=== PATIENT | female | born 1985 | race Caucasian/White ===

== ENCOUNTER → 2016-06-09 | Outpatient (CLI) | payer SELFPAY ==
--- NOTE | 2016-06-10 08:06 | XR ---
EXAMINATION TYPE: XR cervical spine comp DATE OF EXAM: 06/09/2016 5:12 PM COMPARISON: None HISTORY: Neck pain TECHNIQUE: 5 view cervical spine FINDINGS: Prevertebral space is normal. Slight kyphosis present. Posterior spinal lamellar line is in tact. Disc height and vertebral body heights are preserved. Foramen are patent. Extremely subtle ante rolisthesis of C2 on C3 and C3 on C4 C4 and C5 may be present. IMPRESSION: 1. No acute osseous abnormality. 2. Subtle anterolisthesis of the upper cervical spine
== END | disposition home or self-care (01) ==
LOC: RADXRMAIN 16:55
PROVIDERS: ATTEND Family Medicine
DX: M43.12 Spondylolisthesis, cervical region (principal)
CPT/HCPCS: 72050

== ENCOUNTER → 2018-12-13 | Outpatient (CLI) | payer OTHER ==
--- NOTE | 2018-12-14 15:41 | MR ---
EXAMINATION TYPE: MR cervical spine wo con DATE OF EXAM: 12/13/2018 COMPARISON: None HISTORY: Neck pain TECHNIQUE: Multiplanar, multisequence images of the cervical spine were acquired. Cervical vertebra have normal spacing and alignment. Posterior elements are intact. Brainstem is inta ct. Cervical spinal cord is intact. Cerebellum appears normal. There is no spinal stenosis. There is no evidence of cervical paraspinal mass. Cervical spinal cord has normal signal pattern. There is no edema. IMPRESSION: Normal MR scan of the cervical spine.
== END | disposition home or self-care (01) ==
LOC: RADMRIMAIN 14:25
PROVIDERS: ATTEND Internal Medicine
DX: M54.2 Cervicalgia (principal)
CPT/HCPCS: 72141

== ENCOUNTER → 2019-04-18 | Outpatient (CLI) | payer OTHER ==
--- NOTE | 2019-04-18 12:36 | EST ---
EXERCISE STRESS DATE OF SERVICE: 04/18/2019 AGE: 33 SEX: Female HT: 61" WT: 205 pounds PROTOCOL: Agustin STAGE: III DURATION OF EXERCISE: 9 minutes HEART RATE REST: 83 BLOOD PRESSURE REST: 127/85 MAXIMUM HEART RATE ACHIEVED: 155 MAXIMUM BLOOD PRESSURE: 168/80 85% MPHR: 161 100% MPHR: 189 METS: 10.5 INDICATIONS: Chest pain. CLINICAL INFORMATION: Patient was exercised for a total period of 9 minutes. Peak heart rate of 155 was achieved. Maximum blood pressure of 158/80 mmHg was noted. The resting EKG shows normal sinus rhythm with normal KS interval and QRS duration and normal ST-T waves. No ST-segment depression suggestive of ischemia is noted. No dysrhythmias are noted. FINAL IMPRESSION: 1. This exercise EKG electrocardiogram is not suggestive of ischemia. 2. Patient's exercise tolerance is normal. 3. Patient did not complain of any anginal pain during the test. 4. No dysrhythmias are noted. MMODL / IJN: [id number] /
== END | disposition home or self-care (01) ==
LOC: RADNMMAIN 10:22
PROVIDERS: ATTEND Internal Medicine
DX: R07.9 Chest pain, unspecified (principal)
CPT/HCPCS: 93017

== ENCOUNTER 2023-05-10 07:31 | Emergency (ER) | payer OTHER ==
[2023-05-10] MEDS ORDERED: ACETAMINOPHEN TAB 500 MG TAB PO STA (07:54)
--- NOTE | 2023-05-10 08:00 | ED ---
General Adult HPI - General Chief complaint: Upper Respiratory Infection Stated complaint: SOB,Cough, Congestion Time Seen by Provider: 05/10/23 07:39 Source: patient, RN notes reviewed Mode of arrival: ambulatory Limitations: no limitations - History of Present Illness Initial comments: Patient 38-year-old female presented to the emergency room today with a chief complaint of cough, congestion, body aches, fever, chills over the last 5 days. Patient does admit that she was seen at another ER 4 days ago and diagnosed with influenza A. She states has been taking Tamiflu also xovs-eaz-yrelasc medications. States she has had increased cough, congestion. Does admit to history of asthma. States been using nebulized treatments as well with some r elief. Admits to some diarrhea. States occasional nausea. Denies any other complaints or any other symptoms. Denies chest pain, back pain, abdominal pain, shortness of breath. - Related Data Home Medications Medication Instructions Recorded Confirmed Albuterol Inhaler [Ventolin Hfa 1 - 2 puff INHALATION Q6HR PRN 02/10/16 02/10/16 Inhaler] Previous Rx's Medication Instructions Recorded predniSONE 50 mg PO DAILY #7 tab 02/10/16 predniSONE [Deltasone] 20 mg PO BID 5 Days #10 tab 05/10/23 Allergies Allergy/AdvReac Type Severity Reaction Status Date / Time amoxicillin Allergy Rash/Hives Verified 08/03/20 22:55 cephalexin [From Keflex] Allergy Rash/Hives Verified 08/03/20 22:55 latex Allergy Rash/Hives Verified 08/03/20 22:55 Review of Systems ROS Statement: Those systems with pertinent positive or pertinent negative responses have been documented in the HPI. ROS Other: All systems not noted in ROS Statement are negative. Past Medical History Past Medical History: Asthma, Hypertension History of Any Multi-Drug Resistant Organisms: None Reported Past Surgical History: Cholecystectomy Past Anesthesia/Blood Transfusion Reactions: No Reported Reaction Past Psychological History: No Psychological Hx Reported Smoking Status: Never smoker Past Alcohol Use History: None Reported Past Drug Use History: None Reported General Exam - General Exam Comments Initial Comments: General: The patient is awake and alert, in no distress, and does not appear acutely ill. Eye: Extra-ocular movements are intact. There is normal conjunctiva bilaterally. No signs of icterus. Ears, nose, mouth and throat: There are moist mucous membranes and no oral lesions. Neck: The neck is supple, there is no tenderness or JVD. Cardiovascular: There is a regular rate and rhythm. No murmur, rub or gallop is appreciated. Respiratory: Bilateral expiratory wheeze. Respirations are non-labored, breath sounds are equal. Musculoskeletal: Normal ROM, no tenderness. Neurological: A&O x 3. CN II-XII intact, There are no obvious motor or sensory deficits. Coordination appears grossly intact. Speech is normal. Skin: Skin is warm and dry and no rashes or lesions are noted. Psychiatric: Cooperative, appropriate mood & affect, normal judgment. Limitations: no limitations Course Vital Signs 05/10/23 05/10/23 07:39 07:46 Temperature 98.2 F Pulse Rate 65 Respiratory 16 18 Rate Blood Pressure 141/89 O2 Sat by Pulse 98 Oximetry Medical Decision Making - Medical Decision Making History was obtained from patient/Nurse/Family/ Initial assessment and chief complaint: Cough, congestion, fever, body aches Chronic conditions affecting care: Asthma Social determinants affecting care: None Differential diagnosis included, but not limited to: Influenza A, pneumonia Any imaging that may have been performed was also reviewed. I did an independent interpretation of the patient's imaging. My interpretation of chest x-ray was reviewed and was negative for any evidence of pneumonia. No other acute abnormality. 38-year-old female presented to the emergency room today with a chief complaint of bodyaches, fever, cough, congestion. Does admit to history of asthma. Has been doing nebulizer treatments at home with some relief. Patient did test positive for influenza A just 4 days ago. Patient did have some mild expiratory wheeze bilaterally. Patient chest x-ray shows no evidence of pneumonia. Was discussed with patient about course of steroids. Patient does have nebulizer treatments at home that she can use. Her vitals have been stable here in the emergency room. Will be discharged home. Given work note. Given prescription for steroids. Advise close follow-up and returning if any symptoms increase or worsen or for any other concerns. States understanding and is agreement with this plan. Disposition Clinical Impression: Influenza A Disposition: HOME SELF-CARE Condition: Good Instructions (If sedation given, give patient instructions): Influenza (ED) Additional Instructions: Please use medication as discussed. Please follow-up with family doctor in the next 2 days. Please return to emergency room if the symptoms increase or worsen or for any other concerns. Prescriptions: predniSONE [Deltasone] 20 mg PO BID 5 Days #10 tab Is patient prescribed a controlled substance at d/c from ED?: No Referrals: Rafal Gates MD [Primary Care Provider] - 1-2 days Time of Disposition: 08:56
[2023-05-10 08:19] VITALS: RESP 18
--- NOTE | 2023-05-10 08:26 | XR ---
EXAMINATION TYPE: XR chest 2V DATE OF EXAM: 05/10/2023 8:17 AM CLINICAL INDICATION:Female, 38 years old with history of cough; COMPARISON: Chest radiographs from 02/10/2016 TECHNIQUE: XR chest 2V Frontal and lateral views of the chest. FINDINGS: Lungs/Pleura: There is no evidence of pleural effusion, focal consolidation, or pneumothorax. Pulmonary vascularity: Unremarkable. Heart/mediastinum: Cardiomediastinal silhouette is unremarkable. Musculoskeletal: No acute osseous pathology. Other findings: None IMPRESSION: No acute cardiopulmonary disease/process.
[2023-05-10 09:32] VITALS: BP 136/72; PULSE 70; TEMP 98.1
== END 2023-05-10 09:09 | disposition home or self-care (01) ==
LOC: EC 07:31
DX: J10.1 Influenza due to other identified influenza virus with other respiratory manifestations (principal); J45.909 Unspecified asthma, uncomplicated; I10 Essential (primary) hypertension; Z79.899 Other long term (current) drug therapy; Z88.0 Allergy status to penicillin; Z88.1 Allergy status to other antibiotic agents; Z91.040 Latex allergy status
CPT/HCPCS: 71046; 99285

== ENCOUNTER 2023-11-20 11:20 | Emergency (ER) | payer OTHER ==
[2023-11-20] MEDS ORDERED: KETOROLAC 15 MG/ML 1 ML VIAL ONE (11:56)
[2023-11-20] MEDS ORDERED: ONDANSETRON 4 MG/2 ML VIAL ONE (11:56)
[2023-11-20] MEDS ORDERED: SODIUM CHLORIDE 0.9% 1,000 ML BAG ONE (11:59)
--- NOTE | 2023-12-17 16:36 | CT ---
Patient Meri Bradley ID [id number] Order # EXAMINATION TYPE: CT abdomen pelvis w con DATE OF EXAM: 11/20/2023 COMPARISON: No comparisons available on downtime PACS. INDICATION: Right lower quadrant pain and diarrhea DLP: 1119.8 mGycm, Automated exposure control for dose reduction was used. CONTRAST: 90 mL mL of Isovue 300. Study performed TECHNIQUE: Axial images were obtained from above the diaphragm to the pubic rami in the axial plane a t 5 mm thick sections. Reconstructed images are reviewed on the computer in the coronal plane. FINDINGS: Limited CT sections are obtained the lung bases. The lung bases are clear. CT ABDOMEN: Liver: Normal Spleen: Normal Pancreas: Normal Adrenal glands: The adrenal glands are normal. Gallbladder: Surgically absent Kidneys: No masses are evident. No hydronephrosis is present. No cysts are present. Delayed images were obtained through the kidneys, which remain unremarkable. Aorta: Vascular calcification is within the aorta. Inferior vena cava: Normal. CT PELVIS: There are multiple fluid-filled nondilated small bowel loops. Correlate for ileus. Colon is nondilate d. Scattered diverticuli are present without acute diverticulitis. This study is without oral contras t limiting bowel evaluation. Appendix: Normal as visualized. Urinary bladder: Normal. Genitourinary structures: Uterus is normal. Adnexa are normal Osseous structures: No suspicious lytic or sclerotic lesions. IMPRESSION: 1. Fluid-filled nondilated small bowel loops. Correlate for ileus. Gastroenteritis could be consider ed within the differential. 2. Mild diverticulosis without acute diverticulitis.
== END 2023-11-20 15:55 | disposition home or self-care (01) ==
LOC: EC 11:20
DX: K56.7 Ileus, unspecified (principal)
CPT/HCPCS: 74177; 96374; 96375; 99284

== ENCOUNTER 2024-01-06 21:25 | Emergency (ER) | payer OTHER ==
[2024-01-06 21:28] VITALS: TEMP 98.2
[2024-01-06] MEDS: KETOROLAC 15 MG/ML 1 ML VIAL IVP STA (22:09)
[2024-01-06] MEDS: ONDANSETRON 4 MG/2 ML VIAL IVP STA (22:09)
[2024-01-06] MEDS: SODIUM CHLORIDE 0.9% 1,000 ML IV ONE (22:11)
--- NOTE | 2024-01-06 22:48 | ED ---
Headache HPI - General Chief Complaint: Headache Stated Complaint: Headache Time Seen by Provider: 01/06/24 21:28 Mode of arrival: ambulatory Limitations: no limitations - History of Present Illness Initial Comments: 38-year-old female presenting with chief complaint of headache. Patient is also complaining of generalized bodyaches and nausea. Her has similar symptoms as well. They report that yesterday they were camping all day out in the rain and are worried that they may have caused her to get sick. She has tried [id number] medications for symptoms without relief. No chest pain or difficulty breathing. Admits to some cough and congestion as well. No abdominal pain. - Related Data Home Medications Medication Instructions Recorded Confirmed Albuterol Inhaler [Ventolin Hfa 1 - 2 puff INHALATION Q6HR PRN 02/10/16 02/10/16 Inhaler] Previous Rx's Medication Instructions Recorded predniSONE 50 mg PO DAILY #7 tab 02/10/16 predniSONE [Deltasone] 20 mg PO BID 5 Days #10 tab 05/10/23 Allergies Allergy/AdvReac Type Severity Reaction Status Date / Time amoxicillin Allergy Rash/Hives Verified 01/06/24 21:28 cephalexin [From Keflex] Allergy Rash/Hives Verified 01/06/24 21:28 latex Allergy Rash/Hives Verified 01/06/24 21:28 Review of Systems ROS Statement: Those systems with pertinent positive or pertinent negative responses have been documented in the HPI. ROS Other: All systems not noted in ROS Statement are negative. Past Medical History Past Medical History: Asthma, Hypertension History of Any Multi-Drug Resistant Organisms: None Reported Past Surgical History: Cholecystectomy Past Anesthesia/Blood Transfusion Reactions: No Reported Reaction Past Psychological History: No Psychological Hx Reported Smoking Status: Never smoker Past Alcohol Use History: None Reported Past Drug Use History: None Reported General Exam Limitations: no limitations General appearance: alert, in no apparent distress Head exam: Present: atraumatic, normocephalic, normal inspection Eye exam: Present: normal appearance, EOMI ENT exam: Present: normal exam, normal oropharynx, mucous membranes moist, TM's normal bilaterally Neck exam: Present: normal inspection. Absent: meningismus Respiratory exam: Present: normal lung sounds bilaterally. Absent: respiratory distress, wheezes, rales, rhonchi, stridor Cardiovascular Exam: Present: regular rate, normal rhythm, normal heart sounds. Absent: systolic murmur, diastolic murmur, rubs, gallop, clicks Neurological exam: Present: alert, oriented X3 Psychiatric exam: Present: normal affect, normal mood Skin exam: Present: warm, dry, normal color Course Vital Signs 01/06/24 01/06/24 21:26 23:18 Temperature 98.2 F Pulse Rate 78 57 L Respiratory 16 18 Rate Blood Pressure 94/60 122/82 O2 Sat by Pulse 100 98 Oximetry Medical Decision Making - Medical Decision Making Was pt. sent in by a medical professional or institution (, [facility], [facility], urgent care, hospital, or senior care...) When possible be specific @ -No Did you speak to anyone other than the patient for history (EMS, parent, family, police, friend...)? What history was obtained from this source @ -No Did you review nursing and triage notes (agree or disagree)? Why? @ -I reviewed and agree with nursing and triage notes Were old charts reviewed (outside hosp., previous admission, EMS record, old EKG, old radiological studies, urgent care reports/EKG's, senior care records)? Report findings @ -No old charts were reviewed Differential Diagnosis (chest pain, altered mental status, abdominal pain women, abdominal pain men, vaginal bleeding, weakness, fever, dyspnea, syncope, headache, dizziness, GI bleed, back pain, seizure, CVA, palpatations, mental health, musculoskeletal)? @ -MDM Differential Headache: Migraine, tension, cluster, carbon monoxide, central venous thrombosis, pension karma temporal arteritis, acute closure glaucoma, intercranial hemorrhage, mastoiditis, sinusitis, head injury this is not meant to be an all-inclusive list. EKG interpreted by me (3pts min.). @ -As above X-rays interpreted by me (1pt min.). @ -None done CT interpreted by me (1pt min.). @ -None done U/S interpreted by me (1pt. min.). @ -None done What testing was considered but not performed or refused? (CT, X-rays, U/S, labs)? Why? @ -None What meds were considered but not given or refused? Why? @ -None Did you discuss the management of the patient with other professionals (professionals i.e. , PA, MA[employer] [facility], lab, RT, psych nurse, licensed master social worker, validation analyst, teacher, credit control officer, assistant case manager)? Give summary @ -No Was smoking cessation discussed for >3mins.? @ -No Was critical care preformed (if so, how long)? @ -No Were there social determinants of health that impacted care today? How? (Homelessness, low income, unemployed, alcoholism, drug addiction, transportation, low edu. Level, literacy, decrease access to med. care, snf, rehab)? @ -No Was there de-escalation of care discussed even if they declined (Discuss DNR or withdrawal of care, Hospice)? DNR status @ -No What co-morbidities impacted this encounter? (DM, HTN, Smoking, COPD, CAD, Cancer, CVA, ARF, Chemo, Hep., AIDS, mental health diagnosis, sleep apnea, morbid obesity)? @ -None Was patient admitted / discharged? Hospital course, mention meds given and route, prescriptions, significant lab abnormalities, going to OR and other pertinent info. @ -38-year-old female presenting with chief complaint of headache as well as body aches and URI-like symptoms. Negative for influenza, RSV, COVID. Given saline Toradol and Zofran, on reassessment she reports improvement in her symptoms. She is requesting discharge home. Educated on today's findings. Follow-up with PCP. Report back to ER with any new or worsening symptoms. D iscussed return parameters and answered all questions. Patient conveyed verbal understanding and agreed to the plan. I discussed this case in detail with my attending Dr. Rodriguez Undiagnosed new problem with uncertain prognosis? @ -No Drug Therapy requiring intensive monitoring for toxicity (Heparin, Nitro, Insulin, Cardizem)? @ -No Were any procedures done? @ -No Diagnosis/symptom? @ -Headache Acute, or Chronic, or Acute on Chronic? @ -Acute Uncomplicated (without systemic symptoms) or Complicated (systemic symptoms)? @ -Uncomplicated Side effects of treatment? @ -No Exacerbation, Progression, or Severe Exacerbation? @ -No Poses a threat to life or bodily function? How? (Chest pain, [place], NH, pneumonia, PE, COPD, DKA, ARF, appy, cholecystitis, CVA, Diverticulitis, Homicidal, Suici urszula, threat to staff... and all critical care pts) @ -Low likelihood - Lab Data Lab Results 09/29/24 Range/Units 20:04 Influenza Type A (PCR) Not Detected (Not Detectd) Influenza Type B (PCR) Not Detected (Not Detectd) RSV (PCR) Not Detected (Not Detectd) SARS-CoV-2 (PCR) Not Detected (Not Detectd) Disposition Clinical Impression: Headache Disposition: HOME SELF-CARE Condition: Good Instructions (If sedation given, give patient instructions): Acute Headache (ED) Additional Instructions: Follow up with PCP. Report back to ER with any new or worsening symptoms Is patient prescribed a controlled substance at d/c from ED?: No Referrals: Rafal Gates MD [Primary Care Provider] - 1-2 days Time of Disposition: 23:11
[2024-01-06 23:29] VITALS: BP 122/82; PULSE 57; RESP 18
== END 2024-01-06 23:18 | disposition home or self-care (01) ==
LOC: EC 21:25
CPT/HCPCS: 87636; 96361; 96374; 96375; 99284

== ENCOUNTER 2024-01-13 21:56 | Emergency (ER) | payer OTHER ==
[2024-01-13 22:03] VITALS: TEMP 97.5
[2024-01-13 23:08] LABS: Basophils % (A) 0 %; Eosinophils # (A) 0.2 k/uL (0-0.7); Eosinophils % (A) 2 %; HCT 39.9 % (34.0-46.0); HGB 13.4 gm/dL (11.4-16.0); Lymphocytes # (A) 1.8 k/uL (1.0-4.8); Lymphocytes % (A) 25 %; MCH 31.6 pg (25.0-35.0); MCHC 33.6 g/dL (31.0-37.0); MCV 94.1 fL (80.0-100.0); Mean Platelet Volume 8.7; Monocytes # (A) 0.4 k/uL (0-1.0); Monocytes % (A) 5 %; Neutrophils # (A) 4.8 k/uL (1.3-7.7); Neutrophils % (A) 66 %; Platelet Count 229 k/uL (150-450); RBC 4.24 m/uL (3.80-5.40); RDW 11.8 % (11.5-15.5); WBC 7.4 k/uL (3.8-10.6)
[2024-01-13 23:53] LABS: ALT 13 U/L (4-34); AST 15 U/L (14-36); African American GFR (CKD) >90 (>60 ml/min/1.73 sqM); Albumin 3.3 g/dL (3.5-5.0); Alkaline Phosphatase 50 U/L (38-126); Amylase 184 U/L (30-110); Anion Gap 2 mmol/L; Blood Urea Nitrogen 8 mg/dL (7-17); Calcium 8.7 mg/dL (8.4-10.2); Carbon Dioxide 24 mmol/L (22-30); Chloride 112 mmol/L (98-107); Glucose 91 mg/dL (74-99); Non-African American GFR(CKD) >90 (>60 ml/min/1.73 sqM); Potassium 3.3 mmol/L (3.5-5.1); Sodium 138 mmol/L (137-145); Total Bilirubin 0.2 mg/dL (0.2-1.3); Total Protein 5.5 g/dL (6.3-8.2)
--- NOTE | 2024-01-14 00:54 | ED ---
General Adult HPI - General Chief complaint: ENT Stated complaint: L Ear Pain Time Seen by Provider: 01/13/24 22:05 Source: patient Mode of arrival: ambulatory Limitations: no limitations - Related Data Home Medications Medication Instructions Recorded Confirmed Albuterol Inhaler [Ventolin Hfa 1 - 2 puff INHALATION Q6HR PRN 02/10/16 02/10/16 Inhaler] Previous Rx's Medication Instructions Recorded predniSONE 50 mg PO DAILY #7 tab 02/10/16 predniSONE [Deltasone] 20 mg PO BID 5 Days #10 tab 05/10/23 Allergies Allergy/AdvReac Type Severity Reaction Status Date / Time amoxicillin Allergy Rash/Hives Verified 01/13/24 22:01 cephalexin [From Keflex] Allergy Rash/Hives Verified 01/13/24 22:01 latex Allergy Rash/Hives Verified 01/13/24 22:01 Review of Systems ROS Statement: Those systems with pertinent positive or pertinent negative responses have been documented in the HPI. ROS Other: All systems not noted in ROS Statement are negative. Past Medical History Past Medical History: Asthma, Hypertension History of Any Multi-Drug Resistant Organisms: None Reported Past Surgical History: Cholecystectomy Past Anesthesia/Blood Transfusion Reactions: No Reported Reaction Past Psychological History: No Psychological Hx Reported Smoking Status: Current every day smoker Past Alcohol Use History: None Reported Past Drug Use History: None Reported General Exam Limitations: no limitations Course Vital Signs 01/13/24 22:01 Temperature 97.5 F L Pulse Rate 105 H Respiratory 18 Rate Blood Pressure 148/93 O2 Sat by Pulse 98 Oximetry Medical Decision Making - Lab Data Result diagrams: 01/13/24 22:49 01/13/24 22:49 Lab Results 01/13/24 01/13/24 Range/Units 22:49 22:49 WBC 7.4 (3.8-10.6) k/uL RBC 4.24 (3.80-5.40) m/uL Hgb 13.4 (11.4-16.0) gm/dL Hct 39.9 (34.0-46.0) % MCV 94.1 (80.0-100.0) fL MCH 31.6 (25.0-35.0) pg MCHC 33.6 (31.0-37.0) g/dL RDW 11.8 (11.5-15.5) % Plt Count 229 (150-450) k/uL MPV 8.7 Neutrophils % 66 % Lymphocytes % 25 % Monocytes % 5 % Eosinophils % 2 % Basophils % 0 % Neutrophils # 4.8 (1.3-7.7) k/uL Lymphocytes # 1.8 (1.0-4.8) k/uL Monocytes # 0.4 (0-1.0) k/uL Eosinophils # 0.2 (0-0.7) k/uL Basophils # 0.0 (0-0.2) k/uL Sodium 138 (137-145) mmol/L Potassium 3.3 L (3.5-5.1) mmol/L Chloride 112 H (98-107) mmol/L Carbon Dioxide 24 (22-30) mmol/L Anion Gap 2 mmol/L BUN 8 (7-17) mg/dL Creatinine 0.61 (0.52-1.04) mg/dL Est GFR (CKD-EPI)AfAm >90 (>60 ml/min/1.73 sqM) Est GFR (CKD-EPI)NonAf >90 (>60 ml/min/1.73 sqM) Glucose 91 (74-99) mg/dL Calcium 8.7 (8.4-10.2) mg/dL Total Bilirubin 0.2 (0.2-1.3) mg/dL AST 15 (14-36) U/L ALT 13 (4-34) U/L Alkaline Phosphatase 50 (38-126) U/L Total Protein 5.5 L (6.3-8.2) g/dL Albumin 3.3 L (3.5-5.0) g/dL Amylase 184 H (30-110) U/L Disposition Clinical Impression: Parotid gland fullness Disposition: HOME SELF-CARE Condition: Stable Instructions (If sedation given, give patient instructions): Sialoadenitis (ED) Additional Instructions: I will call you in the morning with your results Is patient prescribed a controlled substance at d/c from ED?: No Referrals: Rafal Gates MD [Primary Care Provider] - 1-2 days Time of Disposition: 02:04
[2024-01-14 02:17] VITALS: BP 124/84; PULSE 77; RESP 16
--- NOTE | 2024-01-14 03:36 | US ---
EXAM: US Soft Tissues Head and Neck, Thyroid CLINICAL HISTORY: ITS.REASON US Reason: left sided neck mass, ? parotitis TECHNIQUE: Real-time ultrasound scan of the thyroid gland and soft tissues of the neck with image documentation. COMPARISON: No relevant prior studies available. FINDINGS: Left thyroid lobe: Unremarkable. No enlarged or calcified nodules. Right thyroid lobe: Unremarkable. No enlarged or calcified nodules. Isthmus: Unremarkable. No enlarged or calcified nodules. Lymph nodes: Unremarkable. No lymphadenopathy. Other findings: The patient identified area of concern contains no sonographic evidence of acute or chronic abnormality in this region. EXAM: US Soft Tissues Head and Neck, Thyroid CLINICAL HISTORY: ITS.REASON US Reason: left sided neck mass, ? Parotitis TECHNIQUE: Real-time ultrasound scan of the thyroid gland and soft tissues of the neck with image documentation. COMPARISON: No relevant prior studies available. FINDINGS: Left thyroid lobe: Unremarkable. No enlarged or calcified nodules. Right thyroid lobe: Unremarkable. No enlarged or calcified nodules. Isthmus: Unremarkable. No enlarged or calcified nodules. Lymph nodes: Unremarkable. No lymphadenopathy. Other findings: The patient identified area of concern contains no sonographic evidence of acute or chronic abnormality in this region. IMPRESSION: No sonographic abnormality within the patient identified area of concern.
== END 2024-01-14 02:10 | disposition home or self-care (01) ==
LOC: EC 21:56
CPT/HCPCS: 36415; 76536; 80053; 82150; 85025; 99283